=== PATIENT | male | born 1960 | race Two or more races ===

== ENCOUNTER 2019-03-07 05:15 | Emergency (ER) | payer OTHER ==
[~2019-03-07] VITALS: Ht 182.9 cm; Wt 111.1 kg
== END 2019-03-07 11:26 | disposition home or self-care (01) ==
LOC: ER 05:15
DX: R10.13 Epigastric pain (principal); R07.89 Other chest pain

== ENCOUNTER 2023-07-05 16:25 | Emergency (ER) | payer OTHER ==
[~2023-07-05] VITALS: Ht 172.7 cm; Wt 108.9 kg
[2023-07-05 18:22] LABS: HEMATOCRIT 39.7 % (39.0-48.0); HEMOGLOBIN 13.5 g/dL (13-16.00); MEAN CELL VOLUME 91.3 fL (80.0-100.00); PLATELET COUNT 203 K/uL (150-450); RED BLOOD COUNT 4.35 M/uL (4.00-6.00); RED CELL DISTRIBUTION WIDTH 14.2 % (11.5-14.5)
[2023-07-05 18:42] LABS: INR 1.05; PARTIAL THROMBOPLASTIN TIME 24.5 SECONDS (22.0-34.0)
[2023-07-05 18:46] LABS: ALBUMIN 4.3 gm/dL (3.4-5.0); BILIRUBIN TOTAL 0.48 mg/dL (0.3-1.2); CALCIUM 9.6 mg/dL (8.5-10.1); CREATININE SERUM 0.9 mg/dL (0.70-1.30); GFR 84.95; GLOBULINA 3.5 G/DL (2.4-3.5); POTASSIUM 3.8 mEq/L (3.5-5.1); TOTAL PROTEIN 7.8 gm/dL (6.4-8.2)
== END 2023-07-05 19:39 | disposition home or self-care (01) ==
LOC: ER 16:25
PROVIDERS: General Practice
DX: R00.2 Palpitations (principal)